=== PATIENT | male | born 1940 | race Hispanic/Latino ===

== ENCOUNTER 2018-03-13 16:56 | Emergency (ER) | payer MEDICARE ==
[2018-03-13] MEDS ORDERED: ONDANSETRON HCL 4 MG/2 ML VIAL ONE (17:22)
[2018-03-13] MEDS ORDERED: MORPHINE SULFATE 4 MG/1ML SYG ONE (17:23)
[2018-03-13] MEDS ORDERED: ETOMIDATE 2 MG/ML 10 ML VIAL ONE (19:19)
[2018-03-13] MEDS ORDERED: KETAMINE HCL 100 MG/ML 5ML VIAL IJ ONE (19:28)
== END 2018-03-13 21:16 | disposition home or self-care (01) ==
LOC: EDH 16:56
DX: S43.085A Other dislocation of left shoulder joint, initial encounter (principal); W18.39XA Other fall on same level, initial encounter; Y93.89 Activity, other specified; Y92.89 Other specified places as the place of occurrence of the external cause; Y99.8 Other external cause status
CPT/HCPCS: 23650; 73020; 73030; 96374; 96375; 99152; 99285; J2270; J2405; J3490 ×2